=== PATIENT | male | born 1975 | race Caucasian/White ===

== ENCOUNTER → 2023-10-12 14:34 | Outpatient (CLI) | payer BC, SELFPAY | PROVIDERS: PCP Physician Assistant Medical; Visit Provider Physician Assistant Medical | DX: R10.9 Unspecified abdominal pain (principal) | CPT/HCPCS: 87086 ==

== ENCOUNTER 2023-10-15 08:31 | Emergency (ER) | payer BC, SELFPAY ==
[2023-10-15] VITALS (7 sets, daily range): BP systolic 114–133; BP diastolic 63–79; PULSE 52–64; RESP 16–22; TEMP 36.4; O2SAT 100; BMI 25.0
--- NOTE | 2023-10-15 09:12 | ED.ABDPAIN ---
HPI - Abdominal Pain General Chief Complaint: Abdominal Pain Stated Complaint: L/ mid ABD Pain T-7 Time Seen by Provider: 10/15/23 09:03 Source: patient Mode of arrival: Ambulatory History of Present Illness HPI narrative: 47-year-old male with history of tobacco use, occasional substance abuse who presents with complaint of left lower quadrant pain for the past week. Patient states no flank pain. Pain was persistent has become more intermittent but is still present. No fevers or chills. No diaphoresis. No chest pain or shortness of breath. No nausea or vomiting. Patient states stools have been fairly normal, no black or bloody stools. No dysuria, urgency or frequency. Patient states did try some ibuprofen which was helpful. He became concerned because it has been persistent he is staying on [facility] which does not have easy access to healthcare so came for evaluation. Patient states no daily prescription medications. No prior surgeries. Recently drove up from [place] to stay in [place] with family. Does use tobacco daily, occasional alcohol, uses marijuana. Use some cocaine in the last 90 days but does not use regularly. Has a remote history of heroin. Related Data Home Medications Medication Instructions Recorded Confirmed No Known Home Medications 10/12/23 10/12/23 Allergies Allergy/AdvReac Type Severity Reaction Status Date / Time No Known Drug Allergies Allergy Unverified 10/12/23 13:57 Review of Systems Review of Systems ROS Unobtainable: All systems reviewed & are unremarkable except as noted in HPI and below Patient History Social History Smoking Status: Current every day smoker Smoking Status: Current every day smoker Substance Use Type: marijuana and crack/cocaine Exam Narrative Exam Narrative: GENERAL: Alert and oriented x three, mild distress. HEENT: Head normocephalic, atraumatic, EOMI, pupils reactive, face symmetric, moist mucous membranes NECK: Supple, full range of motion CARDIOVASCULAR: Regular rate and rhythm without murmurs, rubs or gallops. RESPIRATORY: Breath sounds equal bilaterally, no wheezes rales or rhonchi. ABDOMEN: Soft, mild left lower quadrant tenderness. Normoactive bowel sounds all 4 quadrants. No guarding or rebound, rigidity, no mass : No CVA tenderness EXTREMITIES: Normal range of motion, no clubbing or edema. Neurovascularly intact NEUROLOGICAL: Cranial nerves II through XII grossly intact. Moving all extremities SKIN: Warm, dry, no petechiae, no rashes or lesions. Initial Vital Signs Initial Vital Signs: Vital Signs Pulse Rate 64 10/15/23 08:38 Pulse Oximetry 100 10/15/23 08:38 Course Orders Ordered: ED Orders 10/15/23 08:50 Complete Blood Count AUTO DIFF Stat Comprehensive Metabolic Panel Stat Lipase Stat 10/15/23 09:19 CT abdomen pelvis w con Stat Vital Signs Vital signs: Vital Signs - 8 hr 10/15/23 08:38 10/15/23 08:41 10/15/23 08:41 Temperature Pulse Rate 64 60 Respiratory Rate Blood Pressure 132/79 Pulse Oximetry 100 100 Oxygen Delivery Method 10/15/23 08:54 10/15/23 09:00 10/15/23 09:00 Temperature 97.5 F L Pulse Rate 60 54 L Respiratory Rate 16 22 Blood Pressure 132/79 133/63 Pulse Oximetry 100 100 Oxygen Delivery Method Room Air 10/15/23 09:30 Temperature Pulse Rate 55 L Respiratory Rate 16 Blood Pressure Pulse Oximetry 100 Oxygen Delivery Method MDM - Abdominal Pain Lab Data 10/15/23 08:50 10/15/23 08:50 Labs: Lab Results 10/15/23 Range/Units 08:50 WBC 6.3 (4.5-11.0) X10^3/uL RBC 4.68 (4.5-5.9) X10^6/uL Hgb 13.8 (13.5-17.5) g/dL Hct 41.6 (41-53) % MCV 88.7 (80-100) fL MCH 29.4 (26-34) PG MCHC 33.2 (30-36) % RDW 14.2 (11.6-14.8) % Plt Count 257 (150-400) X10^3/uL Neut % (Auto) 44.4 L (50-75) % Lymph % (Auto) 44.4 H (25-40) % [place] % (Auto) 7.9 (3-14) % Eos % (Auto) 2.8 (2-4) % Baso % (Auto) 0.5 (0-2) % Neut # (Auto) 2800 (7460-0632) /uL Lymph # (Auto) 2800 (9954-9194) /uL [place] # (Auto) 500 (0-900) /uL Eos # (Auto) 200 (0-450) /uL Baso # (Auto) 0 (0-100) /uL Sodium 136 L (137-145) mmol/L Potassium 4.6 (3.4-5.1) mmol/L Chloride 105 (98-107) mmol/L Carbon Dioxide 28 (22-32) mmol/L BUN 18 (9-20) mg/dL Creatinine 0.67 (0.66-1.25) mg/dL Estimated GFR > 60 (>60) mL/min BUN/Creatinine Ratio 26.9 H (6-22) Glucose 102 H (70-100) mg/dL Calcium 9.0 (8.4-10.2) mg/dL Total Bilirubin 0.9 (0.2-1.3) mg/dL AST 39 (17-59) IU/L ALT 30 (<50) IU/L Alkaline Phosphatase 53 (38-126) U/L Total Protein 7.2 (6.3-8.2) g/dL Albumin 4.1 (3.5-5.0) g/dL Globulin 3.1 (1.7-4.1) g/dL Albumin/Globulin Ratio 1.3 (1.0-2.8) Lipase 127 (23-300) U/L Point of care testing: Urine Dip Bedside Urine Glucose Negative Bedside Urine Bilirubin - Negative Bedside Urine Ketone - Negative Urine Specific Holcomb 1.030 Bedside Urine Occult Blood - Negative Bedside Urine pH 6.0 Bedside Urine Protein - Negative Bedside Urine Urobilinogen - Negative Bedside Urine Nitrite - Negative Bedside Urine Leukocytes - Negative Esterase Imaging Data CT scan - abdomen/pelvis: Radiologist's Impression: [place] [id number] CT Scan Report Signed Patient: Jose Son MR#: [id number] : 1975 Acct:[id number] Age/Sex: 47 / M Date of Service: 10/15/23 Loc: ED Accession Number: [id number] Procedure: CT abdomen pelvis w con Ordering Provider: Paulina Arauz D.O. PROCEDURE: CT ABDOMEN PELVIS W CON INDICATIONS: LLQ pain x 1 week. TECHNIQUE: After the administration of intravenous contrast, axial sections acquired from the lung bases to the pubic symphysis. Coronal and sagittal reformats were performed. For radiation dose reduction, the following was used: automated exposure control, adjustment of mA and/or kV according to patient size. COMPARISON: None. FINDINGS: Image quality: Diagnostic. Lower Chest: No significant findings. ABDOMEN: Liver: No solid mass. Liver is enlarged measuring 19.7 cm with mild steatosis. Gallbladder: No radiopaque gallstones or wall thickening. Biliary ducts: No biliary dilation. Pancreas: No ductal dilation. Spleen: Size is within normal limits. Adrenal Glands: No adrenal nodules. Kidneys and Ureters: No hydronephrosis. No solid mass. No complex renal cystic lesion which requires follow up. Stomach and Bowel: Minimal areas of questionable small bowel thickening. Minimal scattered diverticula without inflammatory change. Peritoneum: No abnormal intraperitoneal fluid. No free air. Ventral Wall: Trace fat containing ventral hernia. Abdominal Nodes: No retroperitoneal or mesenteric adenopathy by size criteria. Vessels: Aorta and inferior vena cava are normal in size. PELVIS: Pelvic Organs: Unremarkable. Bladder: No bladder wall thickening, accounting for underdistention. Pelvic Nodes: No enlarged lymph nodes. Miscellaneous: No inguinal hernias are seen. Bones: No aggressive osseous abnormality. IMPRESSION: Minimal scattered areas of questionable small bowel thickening. This could represent enteritis. Dictated by: Jennie Blair M.D. on 10/15/2023 at 10:19 Approved by: Jennie Blair M.D. on 10/15/2023 at 10:21 [facility] Narrative Medical decision making narrative: 47-year-old male with left lower abdominal pain for the past week which has become a little bit more intermittent but still present. Patient does not have any flank pain urine today is negative for blood or signs of infection Labs show normal white count, hemoglobin is 13.8, platelets 257 has predominance of lymphocytes. Sodium is 136 otherwise appropriate electrolytes glucose is 102, LFTs are negative with a lipase of 127 Urine shows no changes today. CT abdomen pelvis minimal scattered areas of questionable small-bowel thickening could represent enteritis, enlarged measuring 19.7 cm with mild steatosis. Plan for patient to continue with Tylenol/ibuprofen PRN return if worsening symptoms but no other additional interventions at this time. Discharge Plan Departure Patient Disposition: Home Clinical Impression: Left sided abdominal pain Instructions: DI for Colitis Activity Restrictions/Additional Instructions: Follow up for recheck if symptoms are persistent. Your imaging today shows enlarged liver with a little bit of hepatic steatosis. This should be followed with primary care but does not require any interventions today. There are a couple areas of questionable thickening in the colon but no other changes. You may continue with ibuprofen up to 600 mg every 6 hours and/or Tylenol up to a 1000 mg every 6 hours as needed for pain. Please return for fevers, new or worsening abdominal back flank pain, persistent vomiting, black or bloody stools or other new or concerning changes. Prescriptions: No Action No Known Home Medications Referrals: Joann Helm PA-C [Primary Care Provider] - Stand Alone Forms: Patient Portal/API
--- NOTE | 2023-10-15 09:19 | DI.CT.S_ITS ---
PROCEDURE: CT ABDOMEN PELVIS W CON INDICATIONS: LLQ pain x 1 week. TECHNIQUE: After the administration of intravenous contrast, axial sections acquired from the lung bases to the pubic symphysis. Coronal and sagittal reformats were performed. For radiation dose reduction, the following was used: automated exposure control, adjustment of mA and/or kV according to patient size. COMPARISON: None. FINDINGS: Image quality: Diagnostic. Lower Chest: No significant findings. ABDOMEN: Liver: No solid mass. Liver is enlarged measuring 19.7 cm with mild steatosis. Gallbladder: No radiopaque gallstones or wall thickening. Biliary ducts: No biliary dilation. Pancreas: No ductal dilation. Spleen: Size is within normal limits. Adrenal Glands: No adrenal nodules. Kidneys and Ureters: No hydronephrosis. No solid mass. No complex renal cystic lesion which requires follow up. Stomach and Bowel: Minimal areas of questionable small bowel thickening. Minimal scattered diverticula without inflammatory change. Peritoneum: No abnormal intraperitoneal fluid. No free air. Ventral Wall: Trace fat containing ventral hernia. Abdominal Nodes: No retroperitoneal or mesenteric adenopathy by size criteria. Vessels: Aorta and inferior vena cava are normal in size. PELVIS: Pelvic Organs: Unremarkable. Bladder: No bladder wall thickening, accounting for underdistention. Pelvic Nodes: No enlarged lymph nodes. Miscellaneous: No inguinal hernias are seen. Bones: No aggressive osseous abnormality. IMPRESSION: Minimal scattered areas of questionable small bowel thickening. This could represent enteritis. Dictated by: Jennie Blair M.D. on 10/15/2023 at 10:19 Approved by: Jennie Blair M.D. on 10/15/2023 at 10:21
[2023-10-15 09:28] LABS: Add Manual Diff / Slide Review NO; Basophils Absolute Auto 0 /uL (0-100); Basophils Percent Auto 0.5 % (0-2); Eosinophils Absolute Auto 200 /uL (0-450); Eosinophils Percent Auto 2.8 % (2-4); Hematocrit 41.6 % (41-53); Hemoglobin 13.8 g/dL (13.5-17.5); Lymphocytes Absolute Auto 2800 /uL (1100-4500); Lymphocytes Percent Auto 44.4 % (25-40); Mean Corpuscular HGB Conc 33.2 % (30-36); Mean Corpuscular Hemoglobin 29.4 PG (26-34); Mean Corpuscular Volume 88.7 fL (80-100); Monocytes Absolute Auto 500 /uL (0-900); Monocytes Percent Auto 7.9 % (3-14); Neutrophils Absolute Auto 2800 /uL (1500-7000); Neutrophils Percent Auto 44.4 % (50-75); Platelet Count 257 X10^3/uL (150-400); Red Blood Cell Count 4.68 X10^6/uL (4.5-5.9); Red Cell Distribution Width 14.2 % (11.6-14.8); White Blood Cell Count 6.3 X10^3/uL (4.5-11.0)
[2023-10-15 09:33] LABS: Alanine Aminotransferase 30 IU/L (<50); Albumin 4.1 g/dL (3.5-5.0); Albumin Globulin Ratio 1.3 (1.0-2.8); Alkaline Phosphatase 53 U/L (38-126); Aspartate Aminotransferase 39 IU/L (17-59); BUN Creatinine Ratio 26.9 (6-22); Bilirubin Total 0.9 mg/dL (0.2-1.3); Blood Urea Nitrogen 18 mg/dL (9-20); Carbon Dioxide 28 mmol/L (22-32); Chloride 105 mmol/L (98-107); Estimated Glomerular Filt Rate > 60 mL/min (>60); Globulin 3.1 g/dL (1.7-4.1); Glucose 102 mg/dL (70-100); Lipase 127 U/L (23-300); Sodium 136 mmol/L (137-145); Total Protein 7.2 g/dL (6.3-8.2)
[2023-10-15 09:35] LABS: HEMOLYSIS 86 (0-50); Potassium 4.6 mmol/L (3.4-5.1)
== END 2023-10-15 10:47 | disposition home or self-care (01) ==
PROVIDERS: Emergency Provider Emergency Medicine; PCP Physician Assistant Medical
DX: R10.32 Left lower quadrant pain (principal)
CPT/HCPCS: 36415; 74177; 80053; 81003; 83690; 85025; 99283; 99284; Q9967

== ENCOUNTER → 2023-10-25 10:25 | Outpatient (CLI) | payer BC, SELFPAY ==
[2023-10-25 20:10] LABS: Add Manual Diff / Slide Review NO; Basophils Absolute Auto 0 /uL (0-100); Basophils Percent Auto 0.7 % (0-2); Eosinophils Absolute Auto 200 /uL (0-450); Eosinophils Percent Auto 4.7 % (2-4); Hematocrit 39.3 % (41-53); Hemoglobin 13.3 g/dL (13.5-17.5); Lymphocytes Absolute Auto 2400 /uL (1100-4500); Lymphocytes Percent Auto 48.4 % (25-40); Mean Corpuscular HGB Conc 33.7 % (30-36); Mean Corpuscular Volume 89.1 fL (80-100); Monocytes Absolute Auto 400 /uL (0-900); Monocytes Percent Auto 8.6 % (3-14); Neutrophils Absolute Auto 1800 /uL (1500-7000); Neutrophils Percent Auto 37.6 % (50-75); Platelet Count 243 X10^3/uL (150-400); Red Blood Cell Count 4.41 X10^6/uL (4.5-5.9); Red Cell Distribution Width 13.8 % (11.6-14.8); White Blood Cell Count 4.9 X10^3/uL (4.5-11.0)
[2023-10-25 20:39] LABS: Alanine Aminotransferase 27 IU/L (<50); Albumin 4.4 g/dL (3.5-5.0); Albumin Globulin Ratio 1.8 (1.0-2.8); Alkaline Phosphatase 52 U/L (38-126); Aspartate Aminotransferase 28 IU/L (17-59); BUN Creatinine Ratio 19.5 (6-22); Bilirubin Total 0.8 mg/dL (0.2-1.3); Blood Urea Nitrogen 15 mg/dL (9-20); Calcium 9.4 mg/dL (8.4-10.2); Carbon Dioxide 29 mmol/L (22-32); Chloride 105 mmol/L (98-107); Cholesterol 161 mg/dL (140-199); Estimated Glomerular Filt Rate > 60 mL/min (>60); Globulin 2.4 g/dL (1.7-4.1); Glucose 97 mg/dL (70-100); HDL Cholesterol 105 mg/dL (40-60); HEMOLYSIS < 15 (0-50); LDL Cholesterol Calculated 45 mg/dL (<100); Sodium 139 mmol/L (137-145); Total Protein 6.8 g/dL (6.3-8.2); Triglycerides 53 mg/dL (35-150)
[2023-10-25 20:42] LABS: TSH w/ Reflex to FT4 0.42 uIU/mL (0.47-4.68)
[2023-10-25 21:34] LABS: Free T4, Direct Thyroxine 1.06 ng/dL (0.78-2.19)
== END ==
PROVIDERS: PCP Physician Assistant Medical; Visit Provider Physician Assistant Medical
DX: R10.13 Epigastric pain (principal); R10.9 Unspecified abdominal pain
CPT/HCPCS: 80053; 80061; 84439; 84443; 85025

== ENCOUNTER → 2025-06-21 14:33 | Outpatient (CLI) | payer OTHER, SELFPAY ==
[2025-06-21 18:49] LABS: Add Manual Diff / Slide Review NO; Hematocrit 40.8 % (41-53); Hemoglobin 13.8 g/dL (13.5-17.5); Lymphocytes Absolute Auto 2300 /uL (1100-4500); Mean Corpuscular HGB Conc 34.0 % (30-36); Mean Corpuscular Hemoglobin 30.6 PG (26-34); Mean Corpuscular Volume 90.2 fL (80-100); Platelet Count 263 X10^3/uL (150-400)
[2025-06-21 18:53] LABS: HEMOLYSIS 17 (0-50); Iron 137 ug/dL (49-181)
[2025-06-21 18:56] LABS: Blood Urea Nitrogen 18 mg/dL (9-20); Calcium 9.2 mg/dL (8.4-10.2); Carbon Dioxide 29 mmol/L (22-32); Chloride 100 mmol/L (98-107); Cholesterol 198 mg/dL (140-199); Estimated Glomerular Filt Rate > 60 mL/min (>60); Glucose 87 mg/dL (70-99); HEMOLYSIS 16 (0-50); Potassium 4.3 mmol/L (3.4-5.1); Sodium 134 mmol/L (137-145); Triglycerides 44 mg/dL (35-150)
[2025-06-21 19:03] LABS: HDL Cholesterol 157 mg/dL (40-60)
[2025-06-21 19:07] LABS: Percent Iron Saturation 45 % (20-50); Total Iron Binding Capacity 302 ug/dL (261-462); Transferrin 275 mg/dL (206-381)
[2025-06-21 19:28] LABS: TSH w/ Reflex to FT4 0.79 uIU/mL (0.47-4.68)
[2025-06-21 20:03] LABS: Folate 9.0 ng/mL (2.76-20.0); Vitamin B12 395 pg/mL (239-931)
== END ==
PROVIDERS: PCP Physician Assistant Medical; Visit Provider Family Medicine
DX: Z13.6 Encounter for screening for cardiovascular disorders (principal); Z12.5 Encounter for screening for malignant neoplasm of prostate; Z13.1 Encounter for screening for diabetes mellitus; D64.9 Anemia, unspecified; E05.90 Thyrotoxicosis, unspecified without thyrotoxic crisis or storm; R68.82 Decreased libido; G57.92 Unspecified mononeuropathy of left lower limb
CPT/HCPCS: 80048; 80061; 82607; 82746; 83540; 83550; 84402; 84403; 84443; 85025; G0103